=== PATIENT | female | born 1960 | race Caucasian/White ===

== ENCOUNTER 2021-07-18 16:53 | Emergency (ER) | payer SELFPAY ==
--- NOTE | 2021-07-18 17:44 | NUR ---
PT LEFT WITHOUT BEEN TRIAGED.
== END 2021-07-18 17:45 | disposition left against medical advice (07) ==
LOC: ER 16:55
DX: Z53.21 Procedure and treatment not carried out due to patient leaving prior to being seen by health care provider (principal)